=== PATIENT | male | born 1965 | race American Indian/Alaskan Native ===

== ENCOUNTER 2020-02-08 07:46 | Outpatient (CLI) | payer BC ==
--- NOTE | 2020-02-08 10:45 | Treadmill Report ---
TREADMILL STRESS TEST INDICATIONS: For abnormal EKG. The patient exercised on Lincoln protocol for 16 minutes. Resting EKG, sinus rhythm with nonspecific ST-Ts. Resting heart rate was 58, resting blood pressure 122/76. Peak heart rate was 165, which is 90% max predicted heart rate. Peak blood pressure 148/90. The patient had no EKG changes suggestive of ischemia. No arrhythmia. SUMMARY: 1. Negative treadmill EKG. 2. Excellent exercise capacity 16 minutes on Lincoln protocol. 3. No exaggerated BP response to exercise. 4. There are no EKG changes or arrhythmia suggestive of ischemia. JOB# [id number] SHEMAR/FLORENTIN
--- NOTE | 2020-02-08 11:58 | Cat Scan Report ---
The following report is a radiology over-read of a CT calcium scoring study. CT calcium scoring study is reported separately by Cardiology. CT CALCIUM SCORING OVER-READ TECHNIQUE: Limited CT through the heart and lung bases. All CT scans at this location are performed using CT dos e reduction for ALARA by means of automated exposure control. COMPARISON: None available. FINDINGS: VISUALIZED LUNGS / PLEURA: No significant abnormality. HEART / MEDIASTINUM: No significant abnormality. SKELETAL SYSTEM: No acute abnormality. Generalized mild degenerative changes are present throughout the thoracic spine. ADDITIONAL FINDINGS: No significant additional abnormality. IMPRESSION: 1. No significant extracardiac abnormality. Signer Name: Evaristo Bird MD Signed: 02/08/2020 11:54 AM Workstation Name: [id number]
== END 2020-02-08 07:47 | disposition home or self-care (01) ==
LOC: ECHO 07:46
PROVIDERS: ATTEND Internal Medicine
DX: R94.31 Abnormal electrocardiogram [ECG] [EKG] (principal); E78.2 Mixed hyperlipidemia
CPT/HCPCS: 75571; 93017; 93306